=== PATIENT | female | born 1955 | race Caucasian/White ===

== ENCOUNTER 2019-07-12 08:11 | Day surgery (SDC) | payer OTHER, SELFPAY ==
--- NOTE | 2019-06-26 12:01 | PCM.HP.BLA ---
History and Physical Date of Admission: 07/12/19 Radha Villavicencio Physician CERTIFIED REGISTERED NURSE ANESTHETIST H&P Signed Encounter Date: 06/26/2019 Expand All Collapse All Hide copied text Renay for details Tiffany Mathias is a 64 year old female who presents for postmenopausal bleeding, endometrial polyps, left ovarian cyst. Patient is scheduled for a hysteroscopy, dilation and curettage, polypectomy using symphion and a laparoscopic bilateral salpingo-oophorectomy with removal of left ovarian cyst. Patient reports she had some bleeding this week nothing too heavy. Patient does not have any pelvic pain, chest pain, shortness of breath, dizziness. Patient was given the opportunity to ask questions regarding the procedure. ? PAST?MEDICAL?HISTORY PAST MEDICAL HISTORY Diagnosis Date ? Calculus of kidney ? ? Diabetes mellitus (HCC) ? ? Excessive or frequent menstruation ? ? Other isolated or specific phobias ? ? Proteinuria ? ? Unspecified essential hypertension ? ? Essential hypertension ? PAST?SURGICAL?HISTORY PAST SURGICAL HISTORY Procedure Laterality Date ? BX OF BREAST; INCISIONAL ? ? ? Bx of breast, incisional ? COLONOSCOP W/ OR W/O [facility] SPEC ? 06/13/2019 ? Colonoscopy ? LIGATE FALLOPIAN TUBE ? 1982 ? Tubal ligation ? PAST SURGICAL HISTORY OF ? 2003 ? Kidney biopsy ? PAST SURGICAL HISTORY OF ? 06/2008 ? kidney - stones at main campus ? REM LESION TRUNK,ARM,LEG 0.6 -1.0CM ? 06/30/11 ? Exc. right forearm skin lesion ? SKIN BX, 1 LESION ? ? ? Skin biopsy, on back ? FAMILY?HISTORY FAMILY HISTORY Problem Relation Age of Onset ? Breast Cancer Mother ? ? Heart Father ? ? [place] ? Breast Cancer Maternal Grandmother ? ? Diabetes Son ? ? TYPE 1 ? other (psychiatric issues) Sister ? ? institutionalized ? Cancer Sister ? ? Lung ? 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 Employer: [employer] Employer: [employer] Social Needs Financial resource strain: Not on file Food insecurity: Worry: Not on file Inability: Not on file Transportation needs: Medical: Not on file Non-medical: Not on file Tobacco Use Smoking status: Never Smoker Smokeless tobacco: Never Used Substance and Sexual Activity Alcohol use: Yes Comment: Occasionally Drug use: No Sexual activity: Yes Partners: Male control/protection: Tubal Ligation Lifestyle Physical activity: Days per week: Not on file Minutes per session: Not on file Stress: Not on file Relationships Social connections: Talks on phone: Not on file Gets together: Not on file Attends roman catholic service: Not on file Active member of club or organization: Not on file Attends meetings of clubs or organizations: Not on file Relationship status: Not on file Intimate partner violence: Fear of current or ex partner: Not on file Emotionally abused: Not on file Physically abused: Not on file Forced sexual activity: Not on file Other Topics Concerns: Not on file Social History Narrative Not on file ? CURRENT?MEDICATIONS ? Current Outpatient Medications: losartan (COZAAR) 100 mg tablet Take 1 tablet by mouth once daily. metFORMIN ER (GLUCOPHAGE XR) 500 mg 24 hr tablet Take 1 tablet by mouth daily with breakfast. metoprolol succinate ER (TOPROL XL) 50 mg 24 hr tablet Take 1 tablet by mouth once daily. spironolactone (ALDACTONE) 25 mg tablet Take 1 tablet by mouth once daily. blood sugar diagnostic (ONETOUCH VERIO) test strip Test blood sugar(s) once daily. Dx: Type 2 DM - Controlled E11.9 Insulin: No ibuprofen (MOTRIN) 600 mg tablet Take 1 tablet by mouth every 6 hours as needed. FOR PAIN. simethicone, chewable (MYLICON) 80 mg chewable tablet Take 1 tablet by mouth every 6 hours as needed. oxyCODONE-acetaminophen (PERCOCET) 5-325 mg tablet Take 1 tablet by mouth every 4 hours as needed for Pain for up to 5 days. Blood-Glucose Meter (ONETOUCH VERIO SYSTEM) misc 1 Kit once daily. Dispense One Kit - Verio Meter Kit Dx: Type 2 DM - Controlled E11.9 lancets (ONE TOUCH DELICA) 33 gauge misc 1 Each once daily. Ultra Fine ? No current facility-administered medications for this visit. Allergies As of Date: 06/26/2019 Allergen Noted Reaction TRIAMTERENE-HYDROCHLOROTHIAZID 05/26/2015 Hives ? Fully Assessed 06/26/2019 ? ? REVIEW OF SYSTEMS Abdomen: no pain .. Expanded ROS: GENERAL: No weight loss, malaise or fevers Allergies and current medication updated:Yes ? EXAM: BP 140/82 Ht 5' 2 (1.58m) Wt 201 lb (91.2kg) LMP 11/15/2012 BMI 36.75 kg/(m^2). ? GENERAL: pleasant, female in no apparent distress HEENT: Normocephalic and atraumatic NECK: full range of motion DERMATOLOGY: Normal, without lesions, non-icteric and non-hirsute BIMANUAL: deferred NEURO: alert and oriented x3,exam grossly non-focal EXTREMITIES: normal ? ASSESSMENT AND PLAN: Encounter Diagnosis ? ? ICD-10-CM ? 1. PMB (postmenopausal bleeding) N95.0 ? 2. Post-op pain G89.18 oxyCODONE-acetaminophen (PERCOCET) 5-325 mg tablet 3. Cyst of left ovary N83.202 ? 4. Endometrial polyp N84.0 ? ? Pt has been counseled on risks/benefits and alternatives of surgery including but not limited to anesthesia, bleeding, infection, injury to pelvic structures including bowel, bladder, ureters and vessels. Pt wishes to proceed with surgery at this time. ? Consent signed. Post op meds given preop instructions reviewed ? Radha Brito MD ?
--- NOTE | 2019-07-06 16:36 | EKG12_ITS ---
Test Reason : PRE-OP Blood Pressure : / mmHG Vent. Rate : 066 BPM Atrial Rate : 066 BPM P-R Int : 174 ms QRS Dur : 090 ms QT Int : 392 ms P-R-T Axes : 018 036 017 degrees QTc Int : 410 ms Normal sinus rhythm Normal ECG Confirmed by LEONARDO WASHINGTON, SALVADOR ([id number]), editor city BANDAR GARRISON ([id number]) on 07/09/2019 11:45:41 AM Referred By: Radha Brito Confirmed By:SALVADOR PATTERSON MD
[2019-07-06 17:04] LABS: Hematocrit 47.7 % (37-47); Hemoglobin 16.3 g/dL (12.0-15.0); Mean Corp Hgb Conc 34.2 g/dL (32-36); Mean Corpuscular Volume 90.9 fL (81-99); Mean Platelet Vol. 9.6 fl (6.2-12.0); Platelet Count 304 K/mm3 (150-450); RBC Distribution Width CV 12.5 % (11.6-14.6); RBC Distribution Width SD 41.7 fl (35.1-43.9); Red Blood Count 5.25 M/mm3 (4.2-5.4); White Blood Count 7.7 K/mm3 (4.4-11.0)
[2019-07-06 17:27] LABS: Anion Gap 7 (5-15); BUN 17 mg/dL (7-18); BUN/Creat Ratio 18.6 RATIO (10-20); Calcium,Total 10.3 mg/dL (8.5-10.1); Chloride 109 mmol/L (98-107); Creatinine, Serum 0.92 mg/dL (0.55-1.02); EST Glomerular Filtration Rate 66 mL/min (>60); Est Glom Filt Rate - Afr Amer 80 mL/min (>60); Glucose 129 mg/dL (74-106); Potassium 3.8 mmol/L (3.5-5.1); Sodium Level 144 mmol/L (136-145)
--- NOTE | 2019-07-12 | FLU_PTH ---
PATIENT: LAVON DAN [place] [facility] [place][id number] AGE/SX: 64/F ROOM: RE07/12/[address]: Dr. Radha Brito, MDDOB: 1955 BED: DIS: 07/12/2019 SPEC #: [id number] RECD: 07/12/19 13:36 STATUS: ALEX RETomas #: [id number] ANAT: 07/12/19 00:[address]: Radha Brito DEPT: CYTOLOGY RECD BY: Dariusz Pulido ENTERED: 07/12/19 13:36 SP TYPE: Fluid OTHR DR: Dr. Scott Whittington MD Tissues: Pelvis, NOS Procedures: Special Stain Group II Surgery Specimen Level IV Cytospin Fluid HEADER OPERATION: Hysteroscopy, D&C symphion, polypectomy PRE-OP DIAGNOSIS: Post menopausal bleeding, endometrial polyps TISSUE SUBMITTED: Peritoneal washings DIAGNOSIS CYTOLOGY Peritoneal washing (Cytospin and cell block): Negative for malignant cells. EDSON:mauro 07/13/19 COMMENT Please also correlate with corresponding surgical specimen report [id number]. Case has been reviewed in consultation with Dr. Love who concurs with the above diagnosis. IDC:AM CYTOLOGY STUDY Slides are reviewed. CYTOLOGY GROSS Received is 20 ml of red cloudy fluid labeled with the patient's name and and designated per the requisition as peritoneal washings. Submitted for cytology preparation including cell block. /Katelynn 07/12/19 TC: 5 CPT: 01544, 22523
--- NOTE | 2019-07-12 | OV_PTH ---
PATIENT: LAVON DAN LOC: [facility] – [place] U#:[id number] AGE/SX: 64/F ROOM: RE07/12/[address]: Dr. Radha Brito, MDDOB: 1955 BED: DIS: 07/12/2019 SPEC #: [id number] RECD: 07/12/19 13:35 STATUS: ALEX ALYSON #: [id number] ANAT: 07/12/19 00:[address]: Radha Brito DEPT: SURGICAL PATHOLOGY RECD BY: Dariusz Pulido ENTERED: 07/12/19 13:36 SP TYPE: OVARY OTHR DR: Dr. Scott Whittington MD Tissues: A - Ovary, NOS B - Endometrium, NOS Procedures: Surgery Specimen Level IV HEADER OPERATION: Hysteroscopy, D&C symphion, polypectomy PRE-OP DIAGNOSIS: Post menopausal bleeding, endometrial TISSUE SUBMITTED: A. bilateral fallopian tubes and ovaries, B. Endometrial curettings, polyp and fibroid MICROSCOPIC DIAGNOSIS A. Bilateral fallopian tubes and bilateral ovaries: Bilateral fallopian tubes -no pathologic diagnosis. Right ovary - simple serous cystadenoma (1 cm in greatest dimension). Left ovary - simple serous cystoadenoma (11 cm in greatest dimension). Soft tissue adjacent to the right fallopian tube, benign vascular proliferations, consistent with capillary hemangioma (0.5 cm in greatest dimension). B. Endometrial curetting, polyp and fibroid: Simple cystic hyperplasia without atypia. Fragments of myometrium with hyalinization, consistent with submucosal leiomyoma. EDSON:mauro 07/13/19 COMMENT Case has been reviewed in consultation with Dr. Love who concurs with the above diagnosis. IDC:AM MICROSCOPIC DESCRIPTION Slides are reviewed. GROSS DESCRIPTION A. Received in fixative is one container labeled with the patient's name and designated bilateral fallopian tubes, ovary and left ovarian cyst. The specimen consists of bilateral fallopian tubes and ovaries. The left ovary is identified as left ovarian cyst. The right fallopian tube measures 4.5 cm in length and 0.5 cm in diameter. Fimbrial end is identified. Fimbrial end is focally adherent to adjacent ovary. A paratubal cyst is also noted measuring 1.5 cm in greatest dimension. The soft and cystic right ovary measures 4 x 3 x 2.5 cm. A second cyst is also noted adjacent to the adherent portion of the fimbrial end, Sections of the ovary reveal multiple cysts filled with clear to hemorrhagic fluid. The largest cyst measures 1 cm in greatest dimension. The left fallopian tube measures 3.5 cm in length and 0.7 cm in diameter. Fimbrial end is identified. The cystic left ovary weighs 99 gm and measures 11 x 7 x 6 cm. The cyst wall is partly disrupted. Outer surface is smooth without any papillations and is inked blank. Sections reveal the left ovary is completely replaced by the multiloculated cyst filled with clear fluid. No papillations are identified. Tea Leaf Reader sections are submitted in 10 cassettes as follows: 1-2 - right fallopian tube and paratubal cysts; 3-5 - right ovary; 6 - left fallopian tube; 7-10 - left ovary. B. Received is one container labeled with the patient name and designated endometrial curetting, polyp and fibroid. The specimen consists of multiple irregular fragments of gregory-pink soft tissue that in aggregate measure 5 x 4 x 1.5 cm. The specimen is totally submitted in 4 cassettes. /EDSON:mauro 07/12/19 TC:1 CPT: 61242 x2, 65614
[2019-07-12 08:37] VITALS: BP 149/79; PULSE 65; RESP 14; TEMP 37.4; O2SAT 97; BMI 36.6
[2019-07-12 08:56] LABS: Bedside Glucose 142 mg/dL (70-110)
[2019-07-12] MEDS: Lactated Ringers 1,000 ML 150 ML IV ×2 (09:01→12:18)
[2019-07-12] MEDS: Bupivacaine Mpf 0.5% 30 ML VIAL (10:25)
--- NOTE | 2019-07-12 11:44 | PCM.OPRPT ---
Report of Operation Date of Procedure: 07/12/19 Pre-Operative Diagnosis: PMB, thickened Endometrium, Endomtrial polyps, Left ovarian cyst Post-Operative Diagnosis: same, submucosal fibroid Surgery/Procedure Performed:: Hysteroscopy, D&C, Polypectomy, myomectomy, Laparoscopic Bilateral salpingoophorectomty removal of left ovarian cyst, pelvic washings Description of Surgical Findings:: large left ovarian cyst- simple appearing fluid noted- cyst not ruptured in abdominal cavity, placed in endocatch bag and removed. multiple endometrial polyps and submucosal fibroid noted. presser and shaper knitted goods: Chayo Brizuela Type of Anesthesia:: General Special Medications: 0.5% marcaine Specimen's removed: submucosal fibroid, endometrial curettings, endometrial polyps, bilateral fallopian tubes, bilateral ovaries, left ovarian cyst, pelvic washings Drains: none Estimated Blood Loss (mL): 20 Fluids Replaced: 1000 Description of Procedure: After informed consent was obtained patient was taken to the operating room she was placed in supine position she was given anesthesia. She was then placed in the [facility] and she was prepped and draped in normal sterile fashion. Bladder was drained prior to the start of procedure approximately 25cc of clear yellow urine was expelled. At this time attention was turned to the vaginal portion where weighted speculum placed at posterior fornix vagina single-tooth tenaculum was used to gently grasp the internal the cervix. uterus was gently sounded to approximately 8cm. Uterine manipulator was placed without difficulty. Legs then placed in parallel with the abdomen the tenaculum and the weighted speculum were removed. 2 towel clamps were placed superior to umbilicus. After Marcaine was injected a small incision was made and a 5 mm trocar was placed under direct visualization. CO2 gas was used to insufflate the intra-abdominal cavity. Upon inspection large ovarian mass extending from the left ovary was noted. Multiple paratubal cystic structures were appreciated on both ovaries and pelvic sidewalls. There was some possible studding on the posterior pelvic sidewalls as well as the anterior cul-de-sac. Omentum appeared normal no upper abdominal studding appreciated. At this time then the LLQ port was placed again Marcaine was injected small incision was made a knife and the 5 mm trocar was placed. this was repeated on right side. The umbilical incision was extended to a 10 mm port. At this time normal saline was injected into the posterior cul-de-sac and rubber rubber catheter was used to collect pelvic washings. At this time then tubes were traced back to the fimbriated ends. Ligasure was used to coagulate and ligate along IP ligament, uterovarian and the mesosalpynx bilaterally until ovaries left ovarian cyst and tubes removed completely. Good hemostasis was appreciated. endocatch bag placed-the right ovary was removed with a small Endo Catch bag and then a large Endo Catch bag was placed to remove the large left ovarian cyst. The cyst was brought to the incision where the bag was removed. The cyst was then ruptured clear fluid was appreciated. Specimens collected and removed. fascia of umbilical incision was closed using 0-vicryl sutre running fashion. At this time procedure was deemed complete successful. The gas was desufflated on from the intra-abdominal cavity. The trochars were removed. Skin was closed using 4-0 Monocryl in a subcutaneous fashion. Dermabond glue was placed. At this time the weighted speculum was placed in the posterior fornix of vagina. The uterine manipulator was removed single-tooth tenaculum was used to gently grasp the anterior lip the cervix. At this time the uterine cavity was sounded to approximately 8 cm. Gentle dilatation was performed once adequate dilatation of the cervix was achieved the hysteroscope using normal saline as a distention medium was placed. To endometrial polyps and a submucosal fibroid was appreciated. The submucosal fibroid and polyps were removed using the Symphion on resector. Tubal ostia visualized. This time hysteroscopy was complete. gentle Sharp curettage was performed. Specimens will be sent to pathology for evaluation. The fluid deficit of approximately 500 cc. Procedure was deemed complete successful there are no complications. Anticipated normal postoperative course. Instrument lap count correct ?2. Vaginal Sweep was negative. Grafts/Implants Used: none - Complications none - Admit VTE Documentation VTE Present on Admission: Yes VTE Mechan Device Prophylaxis: SCD's VTE Pharm Prophylaxis ordered?: No
--- NOTE | 2019-07-12 11:54 | DCINST_ITS ---
Discharge Diet: No Restrictions, - - Increase fluid intake for 48 hours. Discharge Activity: Return to Normal Activity, May Drive - when you are no longer taking narcotic pain medications., May Shower, May Take a Tub Bath - in 7 days., - - Ambulate often the next week after surgery. May resume sexual activity in: 2 weeks Lifting Restrictions: 20 Additional Activity Instructions:: Nothing in the vagina for the next 5 days. Call your doctor if your incision/area has: Continuous Slow Oozing, Sudden Increased Bleeding, Increased Pain/ Swelling, Increased Redness, Foul Smelling Discharge, Swelling at the incision site Call your doctor if you observe: Fever of 101 or Higher, Using more than one pad per hour, Uncontrolled pain Cleanse incision/area with: - - Skin glue on your incision sites do not pick it off. You may shower and let the soap and water run over it and dab dry. Allergies/Adverse Reactions: Allergies hydrochlorothiazide Allergy (Verified 07/05/19 08:23) Rash triamterene Allergy (Verified 07/05/19 08:23) Rash Medications to take at Discharge Losartan Potassium [Cozaar] 100 mg PO DAILY 07/05/19 Metoprolol Tartrate [Lopressor (Beta Malena)] 50 mg PO DAILY 07/05/19 Spironolactone [Aldactone] 25 mg PO DAILY 07/05/19 metFORMIN (XR) [Glucophage Xr] 500 mg PO DAILY 07/05/19 Primary Care Physician: Scott Whittington MD [Primary Care Provider] - Test Results: Test results from this visit will be discussed in further detail at your follow- up appointment, if applicable. Please Follow Up With: Radha Brito MD When: as scheduled
[2019-07-12 12:02] VITALS: BP 144/69; BP 149/79; PULSE 70; RESP 14; TEMP 36.6; O2SAT 93
[2019-07-12 12:15] VITALS: BP 134/67; BP 149/79; PULSE 52; RESP 18; O2SAT 95
[2019-07-12 12:30] VITALS: BP 134/69; BP 149/79; PULSE 52; RESP 18; O2SAT 95
[2019-07-12 12:47] VITALS: BP 121/63; BP 149/79; PULSE 59; RESP 18; TEMP 36.2; O2SAT 93
[2019-07-12 14:21] VITALS: BP 109/50; BP 149/79; PULSE 60; RESP 16; TEMP 36.8; O2SAT 95
== END 2019-07-12 14:26 | disposition home or self-care (01) ==
LOC: SDC 08:15 → AC 08:20
PROVIDERS: Family Provider Family Medicine; PCP Family Medicine; Referring Provider Obstetrics & Gynecology; Visit Provider Obstetrics & Gynecology
PROC: 0UB98ZZ Excision of Uterus, Via Natural or Artificial Opening Endoscopic (ICD-10-PCS; CPT 58558; principal; 2019-07-12 09:35)
PROC: (CPT 58558; 2019-07-12 09:35)
DX: N85.01 Benign endometrial hyperplasia (principal); D25.0 Submucous leiomyoma of uterus; N83.292 Other ovarian cyst, left side; N83.291 Other ovarian cyst, right side; E11.9 Type 2 diabetes mellitus without complications; I10 Essential (primary) hypertension; K21.9 Gastro-esophageal reflux disease without esophagitis; Z87.442 Personal history of urinary calculi; Z79.84 Long term (current) use of oral hypoglycemic drugs; Z79.899 Other long term (current) drug therapy
CPT/HCPCS: 58558; 58661; 36415; 80048; 82962; 85027; 86850; 86900; 86901; 88108; 88305; 88313; 93005; J7120; J2405

== ENCOUNTER → 2020-04-30 09:37 | Outpatient (CLI) | payer OTHER, SELFPAY ==
[2019-12-14 08:13] VITALS: BMI 36.6
--- NOTE | 2020-04-30 09:39 | NM_ITS ---
CLINICAL: 64-year-old female with history of hypercalcemia. 99m Tc SESTAMIBI DUAL PHASE PARATHYROID SCINTIGRAPHY COMPARISON: None available FINDINGS: Following the intravenous administration of 29.0 mCi of 99m Tc sestamibi, image acquisitions of the anterior neck at approximately 15 minutes and 3.0 hours post radiopharmaceutical provision reveal: 1. Immediate static blood pool acquisitions demonstrate distribution of the radiopharmaceutical in the right-left lobes of a prominent sized U-shaped thyroid gland. 2. Delayed images depict symmetric incomplete washout of the radiotracer from the visualized right-left thyroid beds. There is no focal retention of radiopharmaceutical readily identified. NM/Parathyroid Scan IMPRESSION: 1. NEGATIVE 99m Tc SESTAMIBI PARATHYROID IMAGING DUAL PHASE EXAMINATION. 2. Incomplete-delayed washout of the radiopharmaceutical from the entire functioning thyroid colloid may be secondary to multinodular goiter, chronic lymphocytic thyroiditis. (Santos, Radiographics 19: 601, 1999). Electronically Signed: Zaid Ramos DO at 23:02 EDT Tel , Service support ,
== END ==
PROVIDERS: PCP Family Medicine; Referring Provider Internal Medicine Endocrinology, Diabetes & Metabolism; Visit Provider Internal Medicine Endocrinology, Diabetes & Metabolism
DX: E21.0 Primary hyperparathyroidism (principal)
CPT/HCPCS: 78070; A9500

== ENCOUNTER 2021-01-30 16:30 | Emergency (ER) | payer OTHER, SELFPAY ==
[2019-12-14 08:13] VITALS: BMI 36.6
[2021-01-30] VITALS (7 sets, daily range): BP systolic 115–199; BP diastolic 57–99; PULSE 80–100; RESP 16–30; TEMP 36.3–38.9; O2SAT 93–98; BMI 37.0; BMI 38.5
--- NOTE | 2021-01-30 16:45 | CT_ITS ---
STUDY: CT ABDOMEN AND PELVIS WITHOUT CONTRAST REASON FOR EXAM: Female, 65 years old. Pain RADIATION DOSAGE (If Supplied By Facility): CTDIvol = ( 21.06 ) mGy, DLP = ( 1015.38 ) mGycm TECHNIQUE: Axial CT images of the abdomen and pelvis were obtained without IV contrast administration. Multiplanar reconstructions. The protocol utilizes one or more of the following dose reduction techniques: automated exposure control, adjustment of mA and/or kV according to patient size, and/or use of iterative reconstruction technique. COMPARISON: Prior abdomen and pelvic CT exam of 11/12/2016 FINDINGS: Lower Chest Lungs: Normal. Heart: Normal. Ribs: Normal. Organs / Endocrine Liver: Fatty liver Gallbladder / Biliary Tree: Status post cholecystectomy with metallic clips in the gallbladder fossa. Pancreas: Normal. Spleen: Normal. Adrenal Glands: Normal. Peritoneum Fluid Collections: None. Free Air: None. Intestinal Tract Stomach: Normal. Small Intestine: Normal. Appendix: Normal. Colon: Diverticulosis of the colon without evidence of acute diverticulitis. Urinary System Kidney (right): Hydronephrosis of the right kidney with multiple stone fragments at the right ureterovesicular junction invaginated into the bladder lumen. The larger fragment is 7 x 3 mm in size. There is an additional smaller stone in the distal ureter several centimeters above the ureterovesicular junction, one tiny fragment at the level of the iliac vessel crossing. There is a large stone in the central renal pelvis which measures 1.8 x 2.5 x 2.3 cm which has internal and surrounding air bubbles. There are few scattered air bubbles in the collecting system. There are numerous other nonobstructing stones of the right kidney. The largest nonobstructing stone is in the lower pole and measures 9 x 6 mm. Perinephric stranding is present. Kidney (left): Normal size of the left kidney without hydronephrosis. There is a 2 to 3 mm nonobstructing stone in the upper midpole and a 1 mm stone in the midpole without hydronephrosis or ureteral stones. Bladder: Nondistended urinary bladder. Reproductive Organs Negative for pelvic mass or free fluid of the pelvis. Vessels Aorta: Mild plaque. Inferior Vena Cava: Normal. Iliac Arteries: Minimal plaque Lymph Nodes Retroperitoneal: Normal. Iliac / Inguinal: Normal. Mesenteric: Non-visualized. Bones Vertebrae: Mild degenerative changes of the lumbar spine. Pelvis / Sacrum: Normal. Abdominal Wall / Inguinal Region Defect: None. Hernia: None. CT/Abdomen/Pelvis without Cont IMPRESSION: Marked hydronephrosis of the right kidney secondary to multiple stone fragments in the distal ureter which is invaginated into the bladder lumen. The larger stone fragment is 7.3 mm in size. There are at least 2 additional tiny stones in the ureter, a nonobstructing 1.8 x 2.5 x 2.3 cm stone in the distended renal pelvis and numerous other nonobstructing stones. Gas forming in and around the large central renal pelvis stone is consistent with infection secondary to a gas producing organism. Small nonobstructing stones of the left kidney without hydronephrosis or ureteral stones. Nondistended urinary bladder. Negative for pelvic mass or free fluid of the pelvis. Fatty liver, unremarkable spleen and pancreas status post cholecystectomy. No acute bowel related findings. Electronically Signed: Sandhya Aguilera MD at 17:45 EDT , Service support ,
--- NOTE | 2021-01-30 16:52 | ED.VIS.GEN ---
History of Present Illness Chief Complaint: Flank Pain Informant: Patient Onset: Today Narrative: Worsening right flank pain radiating to the right groin since this morning. With pain increasing nausea. Reports currently pain 9 out of 10. History of 2 kidney stones in the past last one 3 to 4 years ago. She reports the first one required intervention with a stent done at outpatient [facility]. History of hypertension diabetes history of chronic kidney disease with creatinine up to 10 at one point however never had dialysis. Currently followed by Dr. Hopson. No medications taken prior to arrival. Prior similar symptoms: Yes Past Medical History - Allergies and Home Meds Allergies/Adverse Reactions: Allergies hydrochlorothiazide Allergy (Verified 01/30/21 16:31) Rash triamterene Allergy (Verified 01/30/21 16:31) Rash Primary Care Physician: Scott Whittington MD [Primary Care Provider] - Past Medical History: - - Hypertension, diabetes, chronic kidney disease Smoking Status: Never smoker Review of Systems General: Denies: Chills, Fever, Sweats Eyes: Denies: Visual changes - bilaterally, Diplopia ENT: Denies: Rhinorrhea, Sore throat Cardiovascular: Denies: Chest pain, Palpitations Respiratory: Denies: Dyspnea, Cough, Dyspnea on exertion Gastrointestinal: Denies: Abdominal pain, Nausea, Vomiting, Diarrhea, Melena, Hematochezia Genitourinary: Reports: - - Urine urgency. Denies: Dysuria, Hematuria, Frequency Musculoskeletal: Reports: Back pain. Denies: Extremity Pain Skin: Denies: Rash, Wounds Neurological: Denies: Headache, Weakness, Numbness Physical Exam Vital Signs/Narrative: Vital Signs Temp Pulse Resp BP Pulse Ox 01/30/21 16:31 97.4 F L 83 16 199/99 H 98 Inital Vital Signs reviewed: Yes General: Well nourished, Well developed, - - Mild uncomfortable, nontoxic Head: Normocephalic, Atraumatic Eyes: Perrl, EOMI ENT: Moist mucous membranes, No rhinorrhea Neck: Supple, Nontender Cardiovascular: Regular rate, Regular rhythm, No murmurs Respiratory: No distress, CTA bilaterally, Chest nontender Abdomen: Soft, Nontender, Nondistended, Normal bowel sounds Back: Nontender, Normal Inspection, - - No rash.. Negative for: CVA tenderness Extremities: Nontender, No edema Skin: Normal color, No rash Neurological: Alert, Oriented x3, Cranial nerves II-XII grossly intact, Normal Strength, Normal Sensation Psychological: Normal affect, Normal Mood Diagnostic/Tx/Re-eval Clinical Impression(s) from Imaging Studies Abdomen/Pelvis CT 01/30/21 16:45 IMPRESSION: Marked hydronephrosis of the right kidney secondary to multiple stone fragments in the distal ureter which is invaginated into the bladder lumen. The larger stone fragment is 7.3 mm in size. There are at least 2 additional tiny stones in the ureter, a nonobstructing 1.8 x 2.5 x 2.3 cm stone in the distended renal pelvis and numerous other nonobstructing stones. Gas forming in and around the large central renal pelvis stone is consistent with infection secondary to a gas producing organism. Small nonobstructing stones of the left kidney without hydronephrosis or ureteral stones. Nondistended urinary bladder. Negative for pelvic mass or free fluid of the pelvis. Fatty liver, unremarkable spleen and pancreas status post cholecystectomy. No acute bowel related findings. Electronically Signed: Sandhya Aguilera MD at 17:45 EDT , Service support , Abnormal Lab Results 01/30/21 01/30/21 01/30/21 16:53 16:53 16:53 WBC 27.0 H RBC 5.20 Hgb 16.1 H Hct 47.6 H MCV 91.5 MCH 31.0 MCHC 33.8 RDW Std Deviation 41.6 RDW Coeff of Tan 12.5 Plt Count 369 MPV 9.4 Immature Gran % (Auto) 0.500 Neut % (Auto) 67.8 Lymph % (Auto) 5.0 L [place] % (Auto) 6.0 Eos % (Auto) 20.3 H Baso % (Auto) 0.4 Absolute Neuts (auto) 18.3 H Absolute Lymphs (auto) 1.34 Nucleated RBC % 0 Diff Path Review March foll PT 12.3 INR 1.0 APTT 24.3 Sodium 137 Potassium 3.6 Chloride 101 Carbon Dioxide 24.0 Anion Gap 12 BUN 17 Creatinine 1.25 H Estim Creat Clear Calc 36.43 Est GFR (MDRD) Af Amer 56 L Est GFR (MDRD) Non-Af 46 L BUN/Creatinine Ratio 13.6 Glucose 180 H Calcium 10.4 H Total Bilirubin Direct Bilirubin AST ALT Alkaline Phosphatase Total Protein Albumin Globulin Urine Color Urine Clarity Urine pH Ur Specific [place] Urine Protein Urine Glucose (UA) Urine Ketones Urine Occult Blood Urine Nitrite Urine Bilirubin Urine Urobilinogen Ur Leukocyte Esterase 01/30/21 01/30/21 16:53 18:32 WBC RBC Hgb Hct MCV MCH MCHC RDW Std Deviation RDW Coeff of Tan Plt Count MPV Immature Gran % (Auto) Neut % (Auto) Lymph % (Auto) [place] % (Auto) Eos % (Auto) Baso % (Auto) Absolute Neuts (auto) Absolute Lymphs (auto) Nucleated RBC % Diff Path Review PT INR APTT Sodium Potassium Chloride Carbon Dioxide Anion Gap BUN Creatinine Estim Creat Clear Calc Est GFR (MDRD) Af Amer Est GFR (MDRD) Non-Af BUN/Creatinine Ratio Glucose Calcium Total Bilirubin 1.10 H Direct Bilirubin 0.30 AST 31 ALT 58 H Alkaline Phosphatase 122 H Total Protein 8.2 Albumin 4.1 Globulin 4.1 Urine Color Yellow Urine Clarity Cloudy Urine pH 6.0 Ur Specific [place] 1.015 Urine Protein 100 H Urine Glucose (UA) Normal Urine Ketones Negative Urine Occult Blood 250 H Urine Nitrite Positive H Urine Bilirubin Negative Urine Urobilinogen Normal Ur Leukocyte Esterase 500 H Abnormal Lab Results 01/30/21 01/30/21 01/30/21 16:53 16:53 16:53 WBC 27.0 H RBC 5.20 Hgb 16.1 H Hct 47.6 H MCV 91.5 MCH 31.0 MCHC 33.8 RDW Std Deviation 41.6 RDW Coeff of Tan 12.5 Plt Count 369 MPV 9.4 Immature Gran % (Auto) 0.500 Neut % (Auto) 67.8 Lymph % (Auto) 5.0 L [place] % (Auto) 6.0 Eos % (Auto) 20.3 H Baso % (Auto) 0.4 Absolute Neuts (auto) 18.3 H Absolute Lymphs (auto) 1.34 Nucleated RBC % 0 Diff Path Review May foll PT 12.3 INR 1.0 APTT 24.3 Sodium 137 Potassium 3.6 Chloride 101 Carbon Dioxide 24.0 Anion Gap 12 BUN 17 Creatinine 1.25 H Estim Creat Clear Calc 36.43 Est GFR (MDRD) Af Amer 56 L Est GFR (MDRD) Non-Af 46 L BUN/Creatinine Ratio 13.6 Glucose 180 H Lactic Acid Calcium 10.4 H Total Bilirubin Direct Bilirubin AST ALT Alkaline Phosphatase Total Protein Albumin Globulin Urine Color Urine Clarity Urine pH Ur Specific [place] Urine Protein Urine Glucose (UA) Urine Ketones Urine Occult Blood Urine Nitrite Urine Bilirubin Urine Urobilinogen Ur Leukocyte Esterase Urine RBC Urine WBC Ur Squamous Epith Cells Amorphous Sediment Urine Bacteria Urine Mucus 01/30/21 01/30/21 01/30/21 16:53 18:32 19:27 WBC RBC Hgb Hct MCV MCH MCHC RDW Std Deviation RDW Coeff of Tan Plt Count MPV Immature Gran % (Auto) Neut % (Auto) Lymph % (Auto) [place] % (Auto) Eos % (Auto) Baso % (Auto) Absolute Neuts (auto) Absolute Lymphs (auto) Nucleated RBC % Diff Path Review PT INR APTT Sodium Potassium Chloride Carbon Dioxide Anion Gap BUN Creatinine Estim Creat Clear Calc Est GFR (MDRD) Af Amer Est GFR (MDRD) Non-Af BUN/Creatinine Ratio Glucose Lactic Acid 4.2 H* Calcium Total Bilirubin 1.10 H Direct Bilirubin 0.30 AST 31 ALT 58 H Alkaline Phosphatase 122 H Total Protein 8.2 Albumin 4.1 Globulin 4.1 Urine Color Yellow Urine Clarity Cloudy Urine pH 6.0 Ur Specific [place] 1.015 Urine Protein 100 H Urine Glucose (UA) Normal Urine Ketones Negative Urine Occult Blood 250 H Urine Nitrite Positive H Urine Bilirubin Negative Urine Urobilinogen Normal Ur Leukocyte Esterase 500 H Urine RBC > 100 SEEN Urine WBC >100 SEEN Ur Squamous Epith Cells 5-10 SEEN Amorphous Sediment 1+ URATE Urine Bacteria 1+ Urine Mucus 0 SEEN - Medical Decision Making Patient nontoxic, elevated blood pressure on arrival. Renal stone protocol initiated, chronic kidney disease therefore NSAIDs were held, she declined any stronger pain medications initially, therefore attempted IV lidocaine for colic symptoms given 130 mg through the IV. Labs noted white count of 27 with a slight left shift. Creatinine 1.25. CT results noted concerns for multiple kidney stones on the right side with moderate severe hydronephrosis with stranding around the kidney. There is also reported scattered air bubbles in the collecting system and central renal pelvis. Largest stone was 7 x 3 mm with multiple small proximal stones. Patient 1 out of 4 SIRS criteria, however with the white count of 27 I did send for blood cultures and lactic acid. She was covered with Zosyn. Reevaluation no improvement of pain symptoms blood pressure improved to 157/73. She is order for morphine for which she agreed. There is currently no urology coverage today or over the weekend. Urine obtained was cloudy return infected. Complicated UTI with pyelonephritis along with obstructive uropathy, she will benefit from hospitalization with specialty care. 1839: I spoke with [facility] with urologist Dr. Evans, who reviewed the readings of the CAT scan. Agrees and accepts the patient to his service. In the interim lactic acid returned at 4.2 blood pressure remained stable last one at 169/91 at 2024. Heart rate later went up to 92, therefore 2 out of 4 SIRS. She now meets septic shock without hypotension. Sepsis reevaluation performed at 2024. She is given 30 cc/kg bolus. Awaiting transport at this time. - Critical Care Time Critical care time (excluding procedures): 30-74 minutes ED Disposition - Plan for ED Patient: Disposition: [facility] Diagnosis: Obstructive uropathy, Urolithiasis, Acute pyelonephritis, Leukocytosis, Septic shock without hypotension Referrals: Scott Whittington MD [Primary Care Provider] -
[2021-01-30] MEDS: 0.9% Normal Saline 1,000 ML 250 ML IV (17:01)
[2021-01-30 17:04] LABS: Hematocrit 47.6 % (37-47); Hemoglobin 16.1 g/dL (12.0-15.0); Mean Corp Hgb Conc 33.8 g/dL (32-36); Mean Corpuscular Volume 91.5 fL (81-99); Mean Platelet Vol. 9.4 fl (6.2-12.0); POSITIVE DIFFERENTIAL YES; POSITIVE MORPHOLOGY YES; Platelet Count 369 K/mm3 (150-450); RBC Distribution Width CV 12.5 % (11.6-14.6); RBC Distribution Width SD 41.6 fl (35.1-43.9)
--- NOTE | 2021-01-30 17:16 | ED.RN ---
pharmacy called for special indicators for IV bolus lidocaine. per marisol the pharmacist lidocaine should be pushed 25-50 mg per min. was consulted on order prior to iv administration. julia dove rn [id number]
[2021-01-30 17:19] LABS: Anion Gap 12 (5-15); BUN 17 mg/dL (7-18); BUN/Creat Ratio 13.6 RATIO (10-20); Calcium,Total 10.4 mg/dL (8.5-10.1); Chloride 101 mmol/L (98-107); Creatinine, Serum 1.25 mg/dL (0.55-1.02); EST Glomerular Filtration Rate 46 mL/min (>60); Est Glom Filt Rate - Afr Amer 56 mL/min (>60); Estimated Creatinine Clearance 36.43 ml/min; Glucose 180 mg/dL (74-106); Potassium 3.6 mmol/L (3.5-5.1); Sodium Level 137 mmol/L (136-145)
[2021-01-30] MEDS: Lidocaine 2% 100 MG/5 ML Syringe 130 MG IV BOLUS (17:28)
--- NOTE | 2021-01-30 17:39 | ED.RN ---
appropriate dose given and verified with aleah mejia rn [id number]
[2021-01-30] MEDS: Morphine 4 MG/ML Syringe IV (18:27)
[2021-01-30 18:33] LABS: AST(SGOT) 31 U/L (15-37); Alanine Aminotransfer ALT/SGPT 58 U/L (13-56); Albumin, Serum 4.1 g/dL (3.2-5.0); Alkaline Phosphatase 122 U/L (45-117); Globulin 4.1 g/dL (2.2-4.2); Partial Thromboplast Time 24.3 Seconds (24.1-36.2); Protein, Total 8.2 g/dL (6.4-8.2); Prothrombin Time (Protime)PT. 12.3 SECONDS (11.7-14.9)
[2021-01-30 18:35] LABS: Mucous, Urine 0 SEEN /hpf (<or=2+)
[2021-01-30 18:39] LABS: Color, Urine Yellow (Yellow); Glucose, Dipstick Normal (Normal); Ketone-Dipstick Negative (Negative); Leukocyte Esterase-Dipstick 500 /ul (Negative); Nitrite-Dipstick Positive (Negative); Occult Blood-Urine 250 /ul (Negative); Protein-Dipstick 100 mg/dl (Negative); Specific Gravity, Urine 1.015 (1.002-1.030); Urine Bilirubin Dipstick Negative (Negative); Urine Clarity Cloudy (Clear); Urine Urobilinogen Normal (Normal)
[2021-01-30 18:50] LABS: Amorphous Sediment 1+ URATE; Bacteria 1+ /hpf (None Seen); Red Blood Cells-Urine > 100 SEEN /hpf (0-5); Squamous Epithelial Cells - UA 5-10 SEEN /hpf (5-10); White Blood Cells >100 SEEN /hpf (0-5)
--- NOTE | 2021-01-30 18:58 | ED.RN ---
delay in antibiotics due to second set of cultures being unable to obtain. phlebotomy called and on there way to department. julia dove rn [id number]
[2021-01-30] MEDS: 0.9% Normal Saline 1,000 ML 999 ML IV ×2 (20:20→21:21)
[2021-01-30] MEDS: Acetaminophen 500 MG Tablet 1000 MG PO (20:38)
--- NOTE | 2021-01-30 21:40 | ED.RN ---
first attempt made to call report to receiving facility. instructed nurse would call me back. seth, rn [id number]
[2021-02-02 14:10] LABS: Differential Indicated MANUAL DIFF
[2021-02-02 14:11] LABS: Lymphocyte 11 % (19-41); Monocyte 7 % (0-10); Neutrophil-Band 9 % (0-5); Neutrophil-Segmented 67 % (47-70); Total Cells Counted 100 (MANUAL DIFF)
[2021-02-02 14:12] LABS: Eosinophil 6 % (0-5)
[2021-02-02 14:13] LABS: Absolute Lymphocyte Count 2.97 X10^3/uL (0.83-4.51); Absolute Neutrophil Count 20.5 X10^3/uL (2.0-7.7); Lymphocyte # 2.97 X10^3/ul (4.0)
[2021-02-03 11:39] LABS: Pathologist Review Reviewed
== END 2021-01-30 22:14 | disposition short-term general hospital (02) ==
PROVIDERS: Emergency Provider Emergency Medicine; PCP Family Medicine
DX: N13.9 Obstructive and reflux uropathy, unspecified (principal); N20.9 Urinary calculus, unspecified; N13.6 Pyonephrosis; D72.829 Elevated white blood cell count, unspecified; R65.21 Severe sepsis with septic shock; A41.9 Sepsis, unspecified organism; E11.22 Type 2 diabetes mellitus with diabetic chronic kidney disease; I12.9 Hypertensive chronic kidney disease with stage 1 through stage 4 chronic kidney disease, or unspecified chronic kidney disease; N18.9 Chronic kidney disease, unspecified; Z79.84 Long term (current) use of oral hypoglycemic drugs; Z87.442 Personal history of urinary calculi; Z79.899 Other long term (current) drug therapy
CPT/HCPCS: 74176; 80048; 80076; 81001; 83605; 85025; 85610; 85730; 87040; 87077; 87086; 87088; 87186; 87426; 96361; 96365; 96375; 99285; J7030; A4216

== ENCOUNTER 2023-06-01 06:02 | Observation (INO) | payer MEDICARE, SELFPAY ==
[2023-06-01 06:03] VITALS: BP 203/91; PULSE 77; RESP 16; TEMP 36.1; O2SAT 95; BMI 38.3
--- NOTE | 2023-06-01 06:09 | CT_ITS ---
EXAM: CT Abdomen And Pelvis W/O Contrast Injection HISTORY: Kidney Stone TECHNIQUE: Routine protocol CT abdomen and pelvis. IV Contrast: None.. Oral contrast: None. RADIATION DOSAGE (If Supplied By Facility): CTDIvol = ( 17.67 ) mGy, DLP = ( 878.28 ) mGycm Individualized dose optimization techniques were used for this CT. COMPARISON: CT abdomen and pelvis 01/30/2021. LIMITATIONS: None. FINDINGS: LOWER CHEST: Included lung bases are clear. LIVER: Enlarged with fatty infiltration. GALLBLADDER AND BILIARY TREE: Gallstones in the gallbladder. PANCREAS: Grossly unremarkable. SPLEEN: Grossly unremarkable. ADRENAL GLANDS: Grossly unremarkable. KIDNEYS AND URETERS: There is a 6 mm calculus in the distal left ureter at the uterovesical junction. The left ureter is dilated with moderate left hydronephrosis and perinephric. There are multiple calculi in the right kidney and at least one tiny calculus in the left kidney. No hydronephrosis on the right. PERITONEUM: No free air. No free fluid. BOWEL: Diverticula in the colon. No bowel obstruction. APPENDIX: Visualized and unremarkable. No evidence of acute appendicitis. VESSELS: Abdominal aorta is normal caliber. REPRODUCTIVE ORGANS: Grossly unremarkable URINARY BLADDER: Grossly unremarkable. ABDOMINAL WALL: Unremarkable. BONES: No acute abnormalities. CT/Abdomen/Pelvis without Cont IMPRESSION: Distal left ureteral calculus 6 mm calculus at the ureterovesical junction with moderate left hydroureteronephrosis. Bilateral nephrolithiasis. Colonic diverticulosis without evidence of acute diverticulitis. Cholelithiasis. Hepatomegaly and steatosis. Electronically Signed: Asia Warren MD at 6:48 EDT ,
--- NOTE | 2023-06-01 06:09 | EDS_ITS ---
HPI History of Present Illness Chief Complaint: Complaint Detail of Chief Complaint: Frequency and urgency with left lower quadrant pain radiating to the flank Informant: patient and spouse/S.O. Onset/Context/Timing Onset: Today Context: Sudden Onset Timing: Continuous and Waxes and wanes Quality: Pain Location: Left lower quadrant radiating to the flank Current Severity: Moderate Maximum Severity: Severe Worsened by: Nothing Relieved by: Nothing Associated Symptoms Associated Symptoms: Frequency and urgency Narrative Narrative: Patient is a 68-year-old woman history of hypertension, type 2 diabetes, stage III kidney disease who presents with frequency and urgency associated with initially left lower quadrant abdominal pain that is now radiating to the left flank area. She cannot find a position of comfort. She was diagnosed 2 years ago with a ureteral stone. She does endorse nausea without vomiting or diarrhea. She denies dysuria or hematuria. There is no history of trauma. She has no other complaints. There is no history of dye to Kalosis or diverticulitis. Prior similar symptoms: Yes (Kidney stone 2 years ago) Recent Illness/[facility]ospitalization: [facility] Medical History (Updated 06/01/23 @ 07:[address] Júnior Kingsley MD) Benign essential HTN Diabetes type 2, controlled Proteinuria due to type 2 diabetes mellitus Ureterolithiasis Home Medications losartan 50 mg tablet 100 mg PO DAILY 07/05/19 [History Last Taken 07/12/19 07:30 100 MG] metoprolol tartrate 50 mg tablet 50 mg PO DAILY 07/05/19 [History Last Taken 07/12/19 07:30 50 MG] spironolactone 25 mg tablet 25 mg PO DAILY 07/05/19 [History Last Taken Unknown] lisinopril 10 mg tablet 10 mg PO DAILY 01/30/21 [History Last Taken Unknown] metformin 500 mg tablet,extended release 24 hr 500 mg PO BID 01/30/21 [History Last Taken Unknown] atorvastatin 40 mg tablet 40 mg PO QHS 06/01/23 [History Last Taken Unknown] cinacalcet 30 mg tablet 30 mg PO DAILY 06/01/23 [History Last Taken Unknown] Allergy/AdvReac Type Severity Reaction Status Date / Time hydrochlorothiazide Allergy Rash Verified 06/01/23 06:28 triamterene Allergy Rash Verified 06/01/23 06:28 Family History Other Cancer Diabetes Heart disease Hypertension Kidney disease Thyroid disorder Surgical History (Updated 06/01/23 @ 06:[address] Júnior Kingsley MD) H/O total hysterectomy Social History (Updated 06/01/23 @ 06:[address] Júnior Kingsley MD) household members: spouse Smoking Status: Never smoker alcohol intake: never ROS ROS ED Constitutional Constitutional ED: Denies chills, fever(s), subjective, sweats or weight loss Eyes Eyes: Denies blurry vision or change in vision ENT ENT ED: Denies ear pain, rhinorrhea or sore throat Cardiovascular Cardiovascular: Denies chest pain or palpitations Respiratory/Chest Respiratory/Chest: Denies cough, dyspnea or dyspnea on exertion Gastrointestinal Gastrointestinal: Reports abdominal pain and nausea; Denies constipation, diarrhea, melena or vomiting Genitourinary Genitourinary ED: Reports urinary frequency; Denies dysuria or hematuria Musculoskeletal Musculoskeletal: Reports back pain; Denies arthralgias, myalgias or neck pain Integumentary Denies rash Endocrine Endocrinology: Denies cold intolerance or heat intolerance Hematologic/Lymphatic Hematologic/Lymphatic: Reports systems reviewed and no addt'l complaints, except as documented EXAM Physical Exam Const Vital Signs: 06/01/23 06:03 Temperature 97 F L Temperature Source Temporal Pulse Rate 77 Respiratory Rate 16 Blood Pressure 203/91 H Blood Pressure Mean 128 Pulse Ox 95 Positive well nourished, well developed and obese Constitutional Narrative: Patient appears uncomfortable. General Appearance ED: well developed; Negative for cyanotic, diaphoretic, NAD or pallor Nutritional Appearance: obese HEENT Reports moist mucous membranes HEENT Narrative: Head is atraumatic normocephalic. Ears normal. Nares patent. Posterior pharynx is unremarkable. Eyes PERRL and EOMs intact bilaterally General Eye ED: Negative for pale conjunctiva or scleral icterus Neck no lymphadenopathy, supple and no JVD Resp normal respiratory effort and clear to auscultation bilaterally Cardio regular rate, regular rhythm, S1 normal heart sound, S2 normal heart sound and no murmurs GI normal to inspection, nondistended, normoactive bowel sounds, non-tender, non- distended and no masses; Negative for hepatosplenomegaly Back/Spine no CVA tenderness Thoracic Spine / Upper Back: Negative for thoracic spinal tenderness Extremity normal to inspection General Extremety ED: Negative for edema or tenderness General Extremity: Negative for edema Neuro oriented x3, CN's II-XII intact bilaterally and no sensory deficits noted Sensorium / Orientation: alert Psych mental status grossly normal Skin no rashes or lesions noted, no wounds and No skin turgor normal General Skin Exam: Negative for jaundice or pallor MDM MDM MDM Narrative Medical decision making narrative: History is consistent with obstructing ureteral stone. Need to rule out urinary tract infection as well. CT of the abdomen was ordered to assess for ureterolithiasis causing obstruction. CBC to assess white count. BMP to assess renal function since she has stage III kidney disease. Because she has stage III kidney disease she received morphine for her pain and Zofran for her nausea. History & Record Review Discussion w/independent historian: Patient and Significant other Additional record(s) reviewed:: Prior outpatient record, Prior ED visit (Diagnosed with ureteral stone approximately 2 years ago.) and Prior labs Lab Data Attestation: I reviewed the patient's lab results. Lab results narrative: White count is elevated. Creatinine is elevated 1.28 with a GFR of 54. This is since baseline. UA reveals NuVasive gravity of 1.025. Positive for protein, blood, nitrites. There is 0-5 RBCs with greater than 100 WBCs and 1+ bacteria. This is a good specimen with only 0-5 epithelial cells. Labs: Laboratory Results - last 24 hr 06/01/23 06/01/23 06:15 06:17 WBC 16.3 H RBC 5.16 Hgb 15.8 H Hct 47.5 H MCV 92.1 MCH 30.6 MCHC 33.3 RDW Std Deviation 42.3 RDW Coeff of Tan 12.4 Plt Count 336 MPV 9.3 Immature Gran % (Auto) 0.600 Neut % (Auto) 64.2 Lymph % (Auto) 22.8 [place] % (Auto) 8.3 Eos % (Auto) 3.4 Baso % (Auto) 0.7 Absolute Neuts (auto) 10.5 H Absolute Lymphs (auto) 3.72 Nucleated RBC % 0 Sodium 137 Potassium 3.8 Chloride 104 Carbon Dioxide 26.0 Anion Gap 7 BUN 26 H Creatinine 1.28 H Estim Creat Clear Calc 34.19 Est GFR (MDRD) Af Amer 54 L Est GFR (MDRD) Non-Af 44 L BUN/Creatinine Ratio 20.3 H Glucose 173 H Calcium 10.4 H Urine Color Usha Urine Clarity Clear Urine pH 5.0 Ur Specific [place] 1.025 Urine Protein 30 H Urine Glucose (UA) Normal Urine Ketones Negative Urine Occult Blood 250 H Urine Nitrite Positive H Urine Bilirubin 3 H Urine Urobilinogen 4 H Ur Leukocyte Esterase Negative Urine RBC 0-5 SEEN Urine WBC >100 SEEN Ur Squamous Epith Cells 0-5 SEEN Urine Bacteria 1+ Urine Mucus RARE Radiography Diagnostic Testing: Clinical Impression(s) from Imaging Studies Abdomen/Pelvis CT 06/01/23 06:09 IMPRESSION: Distal left ureteral calculus 6 mm calculus at the ureterovesical junction with moderate left hydroureteronephrosis. Bilateral nephrolithiasis. Colonic diverticulosis without evidence of acute diverticulitis. Cholelithiasis. Hepatomegaly and steatosis. Electronically Signed: Asia Warren MD at 6:48 EDT Reading Location ID and State: [facility] / [place] Tel , Service support , Management Discussion w/another healthcare provider: Livestock Nutritionist (Call was placed to Dr. [facility] for urology since patient has not seen a urologist and has an obstructing stone with white count and evidence of infection.) Treatment and Re-Evaluation :: Dr. Farrah Etienne did accept patient onto her service. She requested the nurse to call her once patient arrives from the floor for orders. Discharge Plan Triage Chief Complaint: Complaint ED Provider: Júnior Kingsley Dx/Rx/DC Orders Clinical Impression: Hydronephrosis with urinary obstruction due to ureteral calculus, Diabetes type 2, controlled, Stage III chronic kidney disease, Benign essential HTN, Complicated urinary tract infection Prescriptions: No Action losartan 50 MG tablet 100 mg PO DAILY spironolactone 25 MG tablet 25 mg PO DAILY metoprolol tartrate 50 MG tablet 50 mg PO DAILY lisinopril 10 MG tablet 10 mg PO DAILY metformin 500 MG tablet 500 mg PO BID cinacalcet 30 mg tablet 30 mg PO DAILY atorvastatin 40 mg tablet 40 mg PO QHS Primary Care Provider: Scott Whittington Referrals: Scott Whittington MD [Primary Care Provider] - Disposition Disposition: [facility]
[2023-06-01] MEDS: Morphine 4 MG/ML Syringe IV (06:21)
[2023-06-01] MEDS: Ondansetron 4 MG/2 ML Vial IV (06:21)
[2023-06-01] MEDS: 0.9% Normal Saline 1,000 ML 250 ML IV (06:21)
[2023-06-01 06:28] LABS: Color, Urine Amber (Yellow); Glucose, Dipstick Normal (Normal); Ketone-Dipstick Negative (Negative); Leukocyte Esterase-Dipstick Negative /ul (Negative); Nitrite-Dipstick Positive (Negative); Occult Blood-Urine 250 /ul (Negative); Protein-Dipstick 30 mg/dl (Negative); Specific Gravity, Urine 1.025 (1.002-1.030); Urine Clarity Clear (Clear); Urine Urobilinogen 4 mg/dl (Normal)
[2023-06-01 06:28] LABS: Absolute Lymphocyte Count 3.72 X10^3/uL (0.83-4.51); Absolute Neutrophil Count 10.5 X10^3/uL (2.0-7.7); Basophil# 0.12 X10^3/uL; Basophil% 0.7 % (0-1); Eosinophil# 0.55 X10^3/uL; Eosinophils% 3.4 % (0-5); Hematocrit 47.5 % (37-47); Hemoglobin 15.8 g/dL (12.0-15.0); Lymphocyte # 3.72 X10^3/ul (0.83-4.51); Lymphocyte % 22.8 % (19-41); Mean Corp Hgb Conc 33.3 g/dL (32-36); Mean Corpuscular Hgb 30.6 pg (27.0-32.0); Mean Corpuscular Volume 92.1 fL (81-99); Mean Platelet Vol. 9.3 fl (6.2-12.0); Monocyte# 1.36 X10^3/uL; Monocyte% 8.3 % (0-10); NRBC Flagged by Analyzer 0 % (0-5); Neutrophil # 10.49 X10^3/uL (2.7-7.7); Neutrophil % 64.2 % (47-70); Platelet Count 336 K/mm3 (150-450); RBC Distribution Width CV 12.4 % (11.6-14.6); RBC Distribution Width SD 42.3 fl (35.1-43.9); Red Blood Count 5.16 M/mm3 (4.2-5.4); White Blood Count 16.3 K/mm3 (4.4-11.0)
[2023-06-01 06:30] LABS: Urine Bilirubin Dipstick 3 mg/dL (Negative)
[2023-06-01 06:34] LABS: Red Blood Cells-Urine 0-5 SEEN /hpf (0-5); White Blood Cells >100 SEEN /hpf (0-5)
[2023-06-01 06:35] LABS: Bacteria 1+ /hpf (None Seen); Mucous, Urine RARE /hpf (<or=2+); Squamous Epithelial Cells - UA 0-5 SEEN /hpf (5-10)
[2023-06-01 06:43] LABS: Anion Gap 7 (5-15); BUN 26 mg/dL (7-18); BUN/Creat Ratio 20.3 RATIO (10-20); Calcium,Total 10.4 mg/dL (8.5-10.1); Chloride 104 mmol/L (98-107); Creatinine, Serum 1.28 mg/dL (0.55-1.02); EST Glomerular Filtration Rate 44 mL/min (>60); Est Glom Filt Rate - Afr Amer 54 mL/min (>60); Estimated Creatinine Clearance 34.19 ml/min; Glucose 173 mg/dL (74-106); Potassium 3.8 mmol/L (3.5-5.1); Sodium Level 137 mmol/L (136-145)
[2023-06-01] MEDS: Ceftriaxone 1 GM/50 ML BAG IV (07:22)
--- NOTE | 2023-06-01 07:23 | NURSING ---
MED SURG MIKE HYDRONEPHROSIS DUE TO OBSTRUCTING STONE WITH UTI
[2023-06-01 07:57] VITALS: BP 149/63; PULSE 84; RESP 16; TEMP 36.2; O2SAT 99
[2023-06-01 08:32] VITALS: BMI 37.8
[2023-06-01 09:30] VITALS: BP 139/65; PULSE 65; RESP 18; TEMP 36.6; O2SAT 95
[2023-06-01] MEDS: Lactated Ringers 1,000 ML 100 ML IV ×2 (09:34→20:50)
[2023-06-01 11:06] VITALS: PULSE 65
[2023-06-01] MEDS: Losartan Potassium 100 MG Tablet PO (11:06)
[2023-06-01] MEDS: Metoprolol Tartrate 50 MG Tablet PO (11:06)
[2023-06-01] MEDS: Spironolactone 25 MG Tablet PO (11:06)
[2023-06-01] MEDS: Cinacalcet HCl 30 MG Tablet PO (11:07)
[2023-06-01] MEDS: Tamsulosin HCl 0.4 MG Capsule PO (11:07)
[2023-06-01] MEDS: Cefazolin 1 GM/50 ML BAG IV ×3 (11:09→21:58)
--- NOTE | 2023-06-01 16:06 | CHAPLAIN ---
Type of Pastoral Visit _x__ Initial Visit ___ Follow-up Visit ___ On-call Visit ___ General Patient Visit ___ Spiritual Assessment ___ Family Conference ___ Bereavement ___ Rapid Response ___ Code Blue ___ Other (describe below) Pastoral Care Referral From _x__ Patient ___ Family ___ Nurse ___ Physician ___ Human Capital Consultant ___ Drywall Stripper Helper ___ Other (describe below) Sacrament/Intervention _x__ Active listening ___ Anointing ___ Holiness ___ Bereavement ___ Communion _x__ Nasima exploration ___ ___ Life review _x__ Prayer ___ Reconciliation ___ Sacrament of Sick _x__ Supportive presence ___ Wedding ___ Other (describe below) Pastoral Comments
[2023-06-01] MEDS: metFORMIN (XR) 500 MG Tablet PO (17:13)
[2023-06-01 18:09] VITALS: BP 129/58; PULSE 66; RESP 18; TEMP 36.8; O2SAT 97
[2023-06-01 20:53] VITALS: BP 142/71; PULSE 69; RESP 18; TEMP 36.9; O2SAT 95
[2023-06-01] MEDS: Atorvastatin Calcium 40 MG Tablet PO (21:58)
[2023-06-02] VITALS (12 sets, daily range): BP systolic 124–150; BP diastolic 69–80; PULSE 66–77; RESP 16–18; TEMP 36.2–37.1; O2SAT 92–98; BMI 37.8
[2023-06-02] MEDS: Cefazolin 1 GM/50 ML BAG IV ×2 (06:00→13:35)
[2023-06-02] MEDS: Lactated Ringers 1,000 ML 100 ML IV ×2 (06:00→13:31)
--- NOTE | 2023-06-02 06:00 | EKG12_ITS ---
Test Reason : AM EKG Blood Pressure : / mmHG Vent. Rate : 076 BPM Atrial Rate : 076 BPM P-R Int : 166 ms QRS Dur : 082 ms QT Int : 392 ms P-R-T Axes : 054 054 060 degrees QTc Int : 441 ms Normal sinus rhythm Nonspecific T wave abnormality Abnormal ECG When compared with ECG of 06-JUL-2019 16:43, Nonspecific T wave abnormality now evident in Lateral leads Confirmed by LEONARDO WASHINGTON, SALVADOR ([id number]), editor greeting card BANDAR GARRISON ([id number]) on 06/07/2023 7:26:00 AM Referred By: MIKE Confirmed By:SALVADOR PATTERSON MD
[2023-06-02 08:17] LABS: Hemoglobin A1c 6.9 % (3.8-5.6)
--- NOTE | 2023-06-02 09:13 | HP.PCM_ITS ---
HPI - General General Date of Admission: 06/01/23 Date of Service: 06/02/23 Chief Complaint: Left abdominal pain HPI Narrative LAVON DAN, is a 68 F who developed symptoms of a urinary tract infection last week and was seen in urgent care. She was given antibiotics and her culture was negative. She was instructed to stop the antibiotics. She still did not feel well. On Tuesday night into the morning she awoke with significant left-sided lower abdominal pain and some flank pain on the left as well. She denies urgency, frequency, hematuria, dysuria or other lower urinary tract symptoms. She was having some nausea as well. She was not having fevers. On evaluation in the emergency room she was found to have a distal left ureteral calculus approximately 6 mm in size with hydronephrosis and an elevated white count with bacteria in the urine. With her history of diabetes and other comorbidities, the decision was made to bring her in for intravenous antibiotic administration fluids and insertion of a stent. [facility] Medical History Benign essential HTN Diabetes Diabetes type 2, controlled High cholesterol Kidney disease Kidney stones Proteinuria due to type 2 diabetes mellitus Ureterolithiasis Home Medications losartan 50 mg tablet 100 mg PO DAILY blood pressure 07/05/19 [History Last Taken 05/31/23] metoprolol tartrate 50 mg tablet 50 mg PO DAILY bp 07/05/19 [History Last Taken 05/31/23] spironolactone 25 mg tablet 25 mg PO DAILY diuretic 07/05/19 [History Last Taken 05/31/23] lisinopril 10 mg tablet 10 mg PO DAILY blood pressure 01/30/21 [History Last Ta anita 05/31/23] metformin 500 mg tablet,extended release 24 hr 500 mg PO BID 01/30/21 [History Last Taken Unknown] atorvastatin 40 mg tablet 40 mg PO QHS 06/01/23 [History Last Taken Unknown] cinacalcet 30 mg tablet 30 mg PO DAILY 06/01/23 [History Last Taken Unknown] Allergy/AdvReac Type Severity Reaction Status Date / Time hydrochlorothiazide Allergy Hives Verified 06/01/23 08:52 triamterene Allergy Hives Verified 06/01/23 08:52 Family History Other Cancer Diabetes Heart disease Hypertension Kidney disease Thyroid disorder Social History household members: spouse Smoking Status: Never smoker alcohol intake: never ROS Constitutional Constitutional: Denies chills, fatigue, fever(s) or weakness Eyes Eyes: Reports systems reviewed and no addt'l complaints, except as documented ENT HEENT: Reports systems reviewed and no addt'l complaints, except as documented Cardiovascular Cardiovascular: Reports abdominal pain; Denies chest pain, cyanosis, dyspnea, fatigue or rapid heart rate Respiratory/Chest Respiratory/Chest: Denies chest tightness or dyspnea Gastrointestinal Gastrointestinal: Reports abdominal pain and nausea Genitourinary Genitourinary: Denies dysuria, hematuria, urinary frequency, urinary hesitancy, urinary incontinence or urinary urgency Musculoskeletal Musculoskeletal: Reports systems reviewed and no addt'l complaints, except as documented Integumentary Integumentary: Reports systems reviewed and no addt'l complaints, except as documented Neurologic Neurologic: Reports systems reviewed and no addt'l complaints, except as documented Psychiatric Psychiatric: Reports systems reviewed and no addt'l complaints, except as documented Endocrine Endocrinology: Reports systems reviewed and no addt'l complaints, except as documented Hematologic/Lymphatic Hematologic/Lymphatic: Reports systems reviewed and no addt'l complaints, except as documented Allergic/Immunologic Allergic/Immunologic: Reports systems reviewed and no addt'l complaints, except as documented Vital Signs Vital Signs Vital Signs: 06/01/23 09:30 06/01/23 11:06 06/01/23 12:23 Temperature 97.9 F Temperature Source Oral Pulse Rate 65 65 Respiratory Rate 18 Respiratory Effort Respiratory Depth Respiratory Pattern Blood Pressure 139/65 H Blood Pressure Mean 89 Blood Pressure Source Monitor Blood Pressure Position Semi-Fowlers Blood Pressure Location Left Arm Pulse Ox 95 Oxygen Delivery Method Room Air Room Air 06/01/23 18:09 06/01/23 20:53 06/01/23 20:57 Temperature 98.2 F 98.5 F Temperature Source Oral Oral Pulse Rate 66 69 Respiratory Rate 18 18 Respiratory Effort Normal Non-Labored Respiratory Depth Normal Respiratory Pattern Normal Blood Pressure 129/58 H 142/71 H Blood Pressure Mean 81 94 Blood Pressure Source Monitor Monitor Blood Pressure Position Semi-Fowlers Semi-Fowlers Blood Pressure Location Left Arm Left Arm Pulse Ox 97 95 Oxygen Delivery Method Room Air Room Air Room Air 06/02/23 04:06 06/02/23 08:16 Temperature 98.2 F Temperature Source Oral Pulse Rate 74 Respiratory Rate 18 Respiratory Effort Respiratory Depth Respiratory Pattern Blood Pressure 139/75 H Blood Pressure Mean 96 Blood Pressure Source Monitor Blood Pressure Position Semi-Fowlers Blood Pressure Location Left Arm Pulse Ox 97 92 Oxygen Delivery Method Room Air Room Air Weight Weight: 93.8 kg Body Mass Index (BMI) 37.8 Physical Exam Const alert, oriented x3 and no apparent distress General Appearance: cooperative, comfortable and well kempt HEENT normocephalic, head/scalp atraumatic, hearing grossly normal bilaterally, external ears normal, external nose normal and moist oral mucous membranes Eyes General Eye: normal appearance of both eyes Neck supple General: normal visual inspection and trachea midline Lymph Lymphatic: no lymphedema noted Chest inspection of chest normal Resp normal respiratory effort, normal air movement, no retractions and no use of accessory muscles Effort and Inspection: able to speak in complete sentences and symmetric chest movement Cardio regular rate and regular rhythm GI soft to palpation, non-tender and non-distended Narrative: Mild left CVA tenderness Extremity normal to inspection Skin no rashes or lesions noted, no wounds, skin turgor normal, no jaundice, no petechiae and no mottling Neuro oriented x3, CN's II-XII intact bilaterally and moves all extremities Psych mental status grossly normal, thought process normal and cooperative Results Lab / Micro Data 06/01/23 06:15 06/01/23 06:15 Labs: Laboratory Results - last 24 hr 06/02/23 05:50: Hemoglobin A1c 6.9 H Micro: Microbiology 06/01/23 06:17 Urine, Clean Catch Urine Culture - Final Mixed Gram Pos & Gram Neg Org Assessment & Plan Assessment/Plan (1) Complicated urinary tract infection: (2) Hydronephrosis with urinary obstruction due to ureteral calculus: PLAN: Plan Intravenous fluid administration with antibiotics and supportive care Surgical intervention with cystoscopy left ureteral stent insertion Await results of urine culture
[2023-06-02] MEDS: Metoprolol Tartrate 50 MG Tablet PO (09:38)
--- NOTE | 2023-06-02 13:36 | CASEMGMT ---
Addendum entered by Gwen Galarza 06/02/23 15:51: SATHYA OMALLEY in to discuss MONTANEZ form with patient. SATHYA OMALLEY explained MONTANEZ form, patient voiced understanding. Pt signed form and filed in chart. Pt provided with a copy of signed MONT[employer]Z form. Patient had no further questions or concerns at this time. Original Note: SATHYA OMALLEY into pt room to complete MONTANEZ form, pt is off of the floor at this time.
--- NOTE | 2023-06-02 14:21 | DCINST_ITS ---
Discharge Instructions Diet Discharge Diet: No restrictions Activity Discharge Activity: Return to Normal Activity Dressing / Incision Call your doctor if you observe: Fever of 101 or Higher, Inability to urinate and Inability to have a bowel movement Follow Up Care Please Follow Up With: Farrah Vincent MD When: Next week for stent removal, the office will call for arrangements Test Results: Test results from this visit will be discussed in further detail at your follow- up appointment, if applicable. Discharge Plan Admission Admit Date/Time: 06/01/23 09:06 Attending Provider: Farrah Vincent Primary Care Provider: Scott Whittington Discharge Orders/Prescriptions Prescriptions: New cephalexin [cephalexin] 500 mg capsule 500 mg PO Q8H 5 Days Qty: 15 0RF oxycodone-acetaminophen [Percocet] 5-325 mg tablet 1 tab PO Q8H PRN (Reason: pain) 3 Days Qty: 10 0RF Continued losartan 50 MG tablet 100 mg PO DAILY spironolactone 25 MG tablet 25 mg PO DAILY metoprolol tartrate 50 MG tablet 50 mg PO DAILY lisinopril 10 MG tablet 10 mg PO DAILY metformin 500 MG tablet 500 mg PO BID cinacalcet 30 mg tablet 30 mg PO DAILY atorvastatin 40 mg tablet 40 mg PO QHS Referrals / Follow Up: Scott Whittington MD [Primary Care Provider] - Disposition Disposition (needs filled in before D/C Order can be placed): Home, Self Care
--- NOTE | 2023-06-02 14:32 | OP.PCM_ITS ---
Report of Operation Date of Procedure: 06/02/23 Pre-Operative Diagnosis: Left ureteral calculus, hydronephrosis Post-Operative Diagnosis: Same Surgery/Procedure Performed:: Cystoscopy, left ureteroscopy, holmium laser lithotripsy, stone basket extraction and left ureteral stent insertion Surgeon: Farrah Vincent Type of Anesthesia: General Specimen's removed: Stone fragments Description of Procedure: The patient is a 68-year-old female admitted from the emergency department yesterday with pain and a left distal ureteral calculus with hydronephrosis. She now presents for surgical intervention and informed consent has been obtained. The patient was taken to the operating room and placed on the operating room table. Anesthesia monitored the head, neck, airway, IV access and vital signs throughout the case. Once anesthesia was appropriately administered, the patient was placed into dorsal lithotomy position and was prepped and draped in usual sterile fashion. At this time it was evident that the patient has a significant uterovaginal prolapse. The cystoscope was inserted through the urethra under direct visualization into the urinary bladder. Evaluation of the bladder mucosa revealed no evidence of mass, erythema or abnormality. The ureteral orifices were located very very closely to the bladder neck. Due to the prolapse, the angle of insertion at the ureteral orifice was J hooked. The pusher was used for insertion of the 0.035 Glidewire. Once the Glidewire was seen under fluoroscopy within the renal pelvis, the semirigid ureteroscope was used to cannulate the distal left ureter. The stone was immediately visible. It was soft and easily broken with a 200 ?m laser fiber into small pieces which were then stone basket retrieved. After all the fragments were removed, the cystoscope was used for placing a 6 Romansh 24 cm JJ stent over the safety wire with good positioning in the renal pelvis as well as the urinary bladder. At this time the urinary bladder was emptied and the fragments that were retrieved were sent for stone analysis. The patient was then awakened and taken to the recovery room in good condition. There were no c omplications during this procedure. Complications None Admit VTE Documentation VTE Present on Admission: Yes VTE Mechan Device Prophylaxis: SCD's VTE Pharm Prophylaxis ordered?: No Reason prophylaxis not ordered:: Treatment Not Indicated
[2023-06-02 16:00] LABS: Bedside Glucose 153 mg/dL (74-106)
[2023-06-02] MEDS: Spironolactone 25 MG Tablet PO (16:13)
[2023-06-02] MEDS: Tamsulosin HCl 0.4 MG Capsule PO (16:13)
[2023-06-02] MEDS: Losartan Potassium 100 MG Tablet PO (16:13)
[2023-06-02] MEDS: Cinacalcet HCl 30 MG Tablet PO (16:14)
[2023-06-02] MEDS: metFORMIN (XR) 500 MG Tablet PO (16:14)
[2023-06-09 09:10] LABS: Source LEFT KIDNEY
== END 2023-06-02 18:30 | disposition home or self-care (01) ==
LOC: ED 07:05 → MS3 09:21
PROVIDERS: Anesthesiology; Admitting Provider Urology; Emergency Provider Emergency Medicine; PCP Family Medicine; Visit Provider Urology
PROC: (CPT 52332; principal; 2023-06-02 13:05)
DX: N13.6 Pyonephrosis (principal); E11.22 Type 2 diabetes mellitus with diabetic chronic kidney disease; N18.30 Chronic kidney disease, stage 3 unspecified; N81.4 Uterovaginal prolapse, unspecified; I12.9 Hypertensive chronic kidney disease with stage 1 through stage 4 chronic kidney disease, or unspecified chronic kidney disease; E78.00 Pure hypercholesterolemia, unspecified; Z79.84 Long term (current) use of oral hypoglycemic drugs; Z79.899 Other long term (current) drug therapy
CPT/HCPCS: 52356; 00918; 36415; 74176; 76000; 80048; 81001; 82360; 82962; 83036; 85025; 87086; 87088; 93005; 96361; 96365; 96366; 96367; 96375; 99221; 99284; J7030; J7120; A4216; C1769; C2617; G0378; J2405

== ENCOUNTER → 2023-07-01 | Outpatient (CLI) | payer MEDICARE, SELFPAY ==
[2023-07-01 10:35] LABS: Calcium,Total 9.3 mg/dL (8.5-10.1)
== END | disposition home or self-care (01) ==
LOC: MTLAB 08:36
PROVIDERS: PCP Family Medicine; Referring Provider Urology; Visit Provider Urology
DX: N13.30 Unspecified hydronephrosis (principal)
CPT/HCPCS: 36415; 82310

== ENCOUNTER 2023-11-29 08:34 | Outpatient (RCR) | payer MEDICARE, SELFPAY | END 2023-12-14 23:59 | LOC: NS 08:34 | PROVIDERS: PCP Family Medicine; Referring Provider Obstetrics & Gynecology; Visit Provider Obstetrics & Gynecology | DX: Z71.3 Dietary counseling and surveillance (principal); E11.65 Type 2 diabetes mellitus with hyperglycemia; E16.1 Other hypoglycemia; E88.810 Metabolic syndrome; E78.5 Hyperlipidemia, unspecified; I10 Essential (primary) hypertension; E66.01 Morbid (severe) obesity due to excess calories; Z68.37 Body mass index [BMI] 37.0-37.9, adult | CPT/HCPCS: 97802 ==

== ENCOUNTER 2023-12-29 09:03 | Outpatient (RCR) | payer MEDICARE, SELFPAY | END 2024-01-12 23:59 | LOC: NS 09:03 | PROVIDERS: PCP Family Medicine; Referring Provider Obstetrics & Gynecology; Visit Provider Obstetrics & Gynecology | DX: Z71.3 Dietary counseling and surveillance (principal); E11.65 Type 2 diabetes mellitus with hyperglycemia; E16.1 Other hypoglycemia; E88.810 Metabolic syndrome; E78.5 Hyperlipidemia, unspecified; I10 Essential (primary) hypertension; E66.01 Morbid (severe) obesity due to excess calories; Z68.37 Body mass index [BMI] 37.0-37.9, adult | CPT/HCPCS: 97803 ==

== ENCOUNTER → 2024-05-01 | Outpatient (CLI) | payer MEDICARE, SELFPAY ==
--- NOTE | 2024-05-01 13:12 | RAD_ITS ---
STUDY: X-RAY - ABDOMEN/PELVIS REASON FOR EXAM: Female, 68 years old. History of renal stones. TECHNIQUE: Single AP view of the abdomen / pelvis on 2 images. COMPARISON: CT of the abdomen and pelvis dated June 01, 2023 FINDINGS: Normal visualized lung bases. Normal bowel gas pattern with air seen to the distal descending colon. Multiple calcifications projected over the right renal shadow, right upper pole calcification measuring 13 mm in diameter, multiple small stones projected over the midportion of the right renal shadow and to calcifications projected over the lower pole of the right kidney measuring 11 mm and 7 mm. Intra-abdominal outlines obscured by feces and bowel gas. Phleboliths. Normal visualized osseous structures. RAD/Abdomen Single View IMPRESSION: Multiple calcifications projected over the right renal shadow as described. No acute finding. Electronically Signed: Chavez Nath MD at 13:40 EDT ,
== END | disposition home or self-care (01) ==
LOC: MTRAD 13:09
PROVIDERS: PCP Family Medicine; Referring Provider Urology; Visit Provider Urology
DX: N20.0 Calculus of kidney (principal)
CPT/HCPCS: 74018